=== PATIENT | female | born 1995 | race Caucasian/White ===

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

== ENCOUNTER 2017-06-09 23:31 | Observation (INO) | payer SELFPAY ==
[~2017-06-09] VITALS: Ht 167.6 cm; Wt 62.5 kg
[~2017-06-09 23:31] MED LIST changes: +MACR100C2 PO; -OSEL75 PO
[2017-06-09 23:53] VITALS: BP 134/80; PULSE 74; RESP 18; TEMP 98.1; O2SAT 99
[2017-06-10] VITALS (12 sets, daily range): BP systolic 113–134; BP diastolic 54–80; PULSE 62–80; RESP 16–18; TEMP 98–98.8; O2SAT 99–100
--- NOTE | 2017-06-10 01:53 | RADRPT ---
EXAM DATE/TIME: 06/10/2017 01:29 [facility] COMPARISON: No previous studies available for comparison. INDICATIONS : Short of breath. Patient states feels like something is lodged in throat. MEDICAL HISTORY : None. SURGICAL HISTORY : ENCOUNTER: Initial ACUITY: 1 day PAIN SCORE: 0/10 LOCATION: Bilateral chest FINDINGS: The lungs are clear without infiltrate, nodule, or mass. There is no appreciable pleural effusion fo r technique. Heart and mediastinum are unremarkable. CONCLUSION: No acute cardiopulmonary disease. Daisy Santacruz MD on June 10, 2017 at 1:51 Board Certified Radiologist. This report was verified electronically.
--- NOTE | 2017-06-10 01:56 | RADRPT ---
EXAM DATE/TIME: 06/10/2017 01:29 [facility] COMPARISON: No previous studies available for comparison. INDICATIONS : Patient states feels like something is lodged in throat. MEDICAL HISTORY : None. SURGICAL HISTORY : None. ENCOUNTER: Initial ACUITY: 1 day PAIN SCORE: 0/10 LOCATION: Bilateral neck. FINDINGS: There is air in the prevertebral space dissecting down from the level of oropharynx following down in to the superior mediastinum. The airway appears maintained. There is no evidence for a radiopaque for eign body for technique. CONCLUSION: Dissecting gas in the prevertebral space from oropharynx all the way down to the superior mediastinum without evidence for foreign body. Daisy Santacruz MD on June 10, 2017 at 1:54 Board Certified Radiologist. This report was verified electronically.
[2017-06-10] MEDS ORDERED: PIPERACIL-TAZO 3.375 GM PREMIX 50 ML IV ONE (02:30)
--- NOTE | 2017-06-10 02:39 | PD ---
HPI Chief Complaint: Foreign Body Time Seen by Provider: 01:16 Travel History International Travel<30 days: No Contact w/Intl Traveler<30days: No Traveled to known affect area: No History of Present Illness HPI This is a 21-year-old female who was eating a piece of cheese at around 3 PM when she felt a pain in her throat and upper chest, constant, moderate severity , persistent since then. She feels like something is stuck in her throat. She' s eaten and drank since then and she vomited one but she doesn't feel any better. She's never had symptoms like this before. She denies any fevers or chills. PFSH Past Medical History Autoimmune Disease: No Anxiety: No Depression: No Cardiovascular Problems: No Developmental Delay: No Diminished Hearing: No Genitourinary: No Musculoskeletal: No Neurologic: No Psychiatric: No Respiratory: No Integumentary: Yes (MRSA) Immunizations Current: Yes (UTD, PER PT) Tetanus Vaccination: < 5 Years Influenza Vaccination: No ?: Not LMP: 1 WEEK AGO Past Surgical History Surgical History: No Previous Surgery Other Surgery: No Social History Alcohol Use: No Tobacco Use: No Substance Use: No Allergies-Medications (Allergen,Severity, Reaction): Coded Allergies: *MDRO Multi-Drug Resistant Organism (Verified Allergy, Unknown, 06/10/17) MRSA Reported Meds & Prescriptions Reported Meds & Active Scripts Active Review of Systems Except as stated in HPI: all other systems reviewed are Neg Physical Exam Narrative GENERAL:Well appearing, no acute distress SKIN: Focused skin assessment warm and dry. HEAD: Atraumatic. Normocephalic. EYES: Pupils equal and round. No injection or drainage. ENT: Moist mucous membranes NECK: Trachea midline. CARDIOVASCULAR: Regular rate and rhythm. No murmur appreciated. RESPIRATORY: Clear to auscultation. Breath sounds equal bilaterally. GASTROINTESTINAL: Abdomen soft, non-tender, nondistended. MUSCULOSKELETAL: No obvious deformities. NEUROLOGICAL: Awake and alert. No obvious cranial nerve deficits. Moving all extremities. PSYCHIATRIC: Appropriate mood and affect; insight and judgment normal. Data Data Last Documented VS Vital Signs Date Time Temp Pulse Resp B/P (MAP) Pulse Ox O2 Delivery O2 Flow Rate FiO2 06/10/17 01:45 68 16 116/60 (78) 99 Room Air 06/10/17 00:20 98.1 Orders Orders Soft Tissue Neck (06/10/17 ) Chest, Single Ap (06/10/17 ) Complete Blood Count With Diff (06/10/17 02:23) Comprehensive Metabolic Panel (06/10/17 02:23) Prothrombin Time / Inr (Pt) (06/10/17 02:23) Act Partial Throm Time (Ptt) (06/10/17 02:23) Piperacil-Tazo 3.375 Gm Premix (Zosyn 3. (06/10/17 02:30) Admit Order (Ed Use Only) (06/10/17 03:29) Place In Observation (06/10/17 ) Vital Signs (Adult) Q4H (06/10/17 03:28) Activity Oob With Assistance (06/10/17 03:28) Diet Npo (06/10/17 Breakfast) Sodium Chlor 0.9% 1000 Ml Inj (Ns 1000 M (06/10/17 03:28) Sodium Chloride 0.9% Flush (Ns Flush) (06/10/17 03:30) Sodium Chloride 0.9% Flush (Ns Flush) (06/10/17 09:00) Acetaminophen (Tylenol) (06/10/17 03:30) Ondansetron Inj (Zofran Inj) (06/10/17 03:30) Basic Metabolic Panel (Bmp) (06/11/17 06:00) Complete Blood Count With Diff (06/11/17 06:00) Naloxone Inj (Narcan Inj) (06/10/17 03:30) Docusate Sodium-Senna (Sharmin-Colace) (06/10/17 09:00) Magnesium Hydroxide Liq (Milk Of Magnesi (06/10/17 03:30) Sennosides (Senokot) (06/10/17 03:30) Bisacodyl Supp (Dulcolax Supp) (06/10/17 03:30) Lactulose Liq (Lactulose Liq) (06/10/17 03:30) Consult Gastroenterology (06/10/17 ) Labs Laboratory Tests Test 06/10/17 02:42 White Blood Count 9.9 TH/MM3 Red Blood Count 4.91 MIL/MM3 Hemoglobin 14.0 GM/DL Hematocrit 42.2 % Mean Corpuscular Volume 85.9 FL Mean Corpuscular Hemoglobin 28.6 PG Mean Corpuscular Hemoglobin Concent 33.3 % Red Cell Distribution Width 13.2 % Platelet Count 189 TH/MM3 Mean Platelet Volume 8.4 FL Neutrophils (%) (Auto) 68.1 % Lymphocytes (%) (Auto) 22.4 % Monocytes (%) (Auto) 8.1 % Eosinophils (%) (Auto) 0.7 % Basophils (%) (Auto) 0.7 % Neutrophils # (Auto) 6.7 TH/MM3 Lymphocytes # (Auto) 2.2 TH/MM3 Monocytes # (Auto) 0.8 TH/MM3 Eosinophils # (Auto) 0.1 TH/MM3 Basophils # (Auto) 0.1 TH/MM3 CBC Comment DIFF FINAL Differential Comment Prothrombin Time 11.3 SEC Prothromb Time International Ratio 1.1 RATIO Activated Partial Thromboplast Time 29.0 SEC Blood Urea Nitrogen 7 MG/DL Creatinine 0.61 MG/DL Random Glucose 87 MG/DL Total Protein 7.4 GM/DL Albumin 4.4 GM/DL Calcium Level 9.2 MG/DL Alkaline Phosphatase 72 U/L Aspartate Amino Transf (AST/SGOT) 15 U/L Alanine Aminotransferase (ALT/SGPT) 14 U/L Total Bilirubin 1.6 MG/DL Sodium Level 136 MEQ/L Potassium Level 3.4 MEQ/L Chloride Level 103 MEQ/L Carbon Dioxide Level 24.9 MEQ/L Anion Gap 8 MEQ/L Estimat Glomerular Filtration Rate 126 ML/MIN MDM Medical Decision Making Medical Screen Exam Complete: Yes Emergency Medical Condition: Yes Interpretation(s) Afebrile, mild hypertension Last 24 hours Impressions xray soft tissue neck: air dissecting into the mediastinum Differential Diagnosis Esophageal food bolus, foreign body, esophageal perforation Narrative Course Is a 21-year-old female who presents to the emergency department with a foreign body sensation in the back of her throat following eating and then vomiting. Soft tissue x-ray of the neck was obtained demonstrating air dissecting in the prevertebral space down to the superior mediastinum. She is nontoxic appearing and labs are reassuring. She was given a dose of IV Zosyn. She'll be admitted for GI evaluation for potential esophageal perforation. Diagnosis Primary Impression: Pneumomediastinum Admitting Information Admitting Physician Requests: Admit Scripts Hydrocodone/Acetaminophen (Hydrocodone-Acetamin 5-325 mg) 5 Mg-325 Mg Tablet 1 TAB PO Q6H Y for pain , #12 TAB Prov: Davis Dumont MD 06/11/17 Randee Sherman MD Jun 10, 2017 02:39
[2017-06-10 02:51] LABS: AUTOMATED NEUTROPHIL # 6.7 TH/MM3 (1.8-7.7); BASOPHIL # 0.1 TH/MM3 (0-0.2); BASOPHIL % 0.7 % (0.0-2.0); EOSINOPHIL # 0.1 TH/MM3 (0-0.4); EOSINOPHIL % 0.7 % (0.0-4.0); HEMATOCRIT 42.2 % (35.0-46.0); LYMPH % 22.4 % (9.0-44.0); LYMPHOCYTE # 2.2 TH/MM3 (1.0-4.8); MEAN CELL VOLUME 85.9 FL (80.0-100.0); MEAN CORPUSCULAR HEMOGLOBIN 28.6 PG (27.0-34.0); MEAN CORPUSCULAR HGB CONC 33.3 % (32.0-36.0); MEAN PLATELET VOLUME 8.4 FL (7.0-11.0); MONO % 8.1 % (0.0-8.0); MONOCYTE # 0.8 TH/MM3 (0-0.9); NEUT % 68.1 % (16.0-70.0); PLATELET COUNT 189 TH/MM3 (150-450); RED BLOOD COUNT 4.91 MIL/MM3 (4.00-5.30); RED CELL DISTRIBUTION WIDTH 13.2 % (11.6-17.2); WHITE BLOOD COUNT 9.9 TH/MM3 (4.0-11.0)
[2017-06-10 02:58] LABS: CHLORIDE 103 MEQ/L (98-107); SODIUM (NA) 136 MEQ/L (136-145)
[2017-06-10 03:02] LABS: ALBUMIN 4.4 GM/DL (3.4-5.0); BICARBONATE 24.9 MEQ/L (21.0-32.0); BLOOD UREA NITROGEN 7 MG/DL (7-18); CALCIUM 9.2 MG/DL (8.5-10.1); GLUCOSE,RANDOM 87 MG/DL (74-106)
[2017-06-10 03:03] LABS: INTERNATIONAL NORMALIZED RATIO 1.1 RATIO; PROTHROMBIN TIME - PATIENT 11.3 SEC (9.8-11.6)
[2017-06-10 03:05] LABS: ALT (GPT) 14 U/L (9-42); AST (GOT) 15 U/L (16-38)
[2017-06-10 03:06] LABS: CREATININE 0.61 MG/DL (0.50-1.00); GLOMERULAR FILTRATION RATE 126 ML/MIN (>89)
[2017-06-10 03:07] LABS: TOTAL BILIRUBIN ADULT 1.6 MG/DL (0.2-1.0); TOTAL PROTEIN 7.4 GM/DL (6.4-8.2)
[2017-06-10 03:08] LABS: ALKALINE PHOSPHATASE 72 U/L (45-117)
[2017-06-10] MEDS ORDERED: MAGNESIUM HYDROXIDE SUSP 30 ML CUP PO PRN (03:30)
[2017-06-10] MEDS ORDERED: NALOXONE HCL 0.4 MG/ML AMP IV PUSH PRN (03:30)
[2017-06-10] MEDS ORDERED: SODIUM CHLORIDE 0.9% FLUSH 10 ML FLUSH IV FLUSH PRN (03:30)
[2017-06-10] MEDS ORDERED: LACTULOSE SYRUP 20 GM/30 ML CUP PO PRN (03:30)
[2017-06-10] MEDS ORDERED: BISACODYL 10 MG SUPP RECTAL PRN (03:30)
[2017-06-10] MEDS ORDERED: SENNOSIDES 8.6 MG TAB PO PRN (03:30)
[2017-06-10] MEDS ORDERED: ONDANSETRON HCL 4 MG/2 ML VIAL IVP PRN (03:30)
[2017-06-10] MEDS ORDERED: ACETAMINOPHEN 325 MG TAB PO PRN (03:30)
[2017-06-10] MEDS ORDERED: DIATRIZOATE MEGLUM/DIATRIZOATE SOD 120 ML BTL (for RAD DIAG) PO ONE (03:32)
[2017-06-10] MEDS: SODIUM CHLOR 0.9% 1000 ML INJ 1,000 ML IV SCH ×2 (03:53→16:48)
[2017-06-10] MEDS: SODIUM CHLORIDE 0.9% FLUSH 10 ML FLUSH IV FLUSH SCH ×2 (09:00→21:03)
[2017-06-10] MEDS: DOCUSATE SODIUM 50 MG/SENNA 8.6 MG TAB PO SCH ×2 (09:09→21:00)
--- NOTE | 2017-06-10 09:38 | PD.CONS ---
HPI History of Present Illness This is a 21 year old F who presented to the emergency department at 11 last night for globus sensation in her esophagus. She reports eating cheese at approx 3:15 in the afternoon yesterday and she felt like it never completely went down. She tried drinking water and eating hoping that it would pass, she reports everything went down ok, however the globus sensation remained. She also tried making herself vomit hoping it would relieve the sensation but it did not. Pt denies any episodes of dysphagia in the past. Currently reports odynophagia and pain in her esophagus worse with coughing. Denies SOB or chest pain. She is currently resting in bed, grandmother at bedside. Denies any past medical history. Denies current medication. Denies past surgeries. CT soft tissue neck (06/10) --> Dissecting gas in the prevertebral space from oropharynx all the way down to the superior mediastinum without evidence for foreign body. Chest X-ray (06/10) --> No acute cardiopulmonary disease. Heart and mediastinum are unremarkable. (Cherelle Carbone) PFSH Past Medical History Denies Past Surgical History Denies (Cherelle Carbone) Coded Allergies: *MDRO Multi-Drug Resistant Organism (Verified Allergy, Unknown, 06/10/17) MRSA Family History Maternal great grandmother- breast cancer (Cherelle Carbone) Review of Systems Gastrointestinal: COMPLAINS OF: Vomiting, Difficulty Swallowing, Odynophagia, DENIES: Abdominal pain, Black stools, Bloody stools, Constipation, Diarrhea, Nausea, Anorexia, Heartburn, Hematemesis (Cherelle Carbone) GI Exam Vitals I&O Vital Signs Date Time Temp Pulse Resp B/P (MAP) Pulse Ox O2 Delivery O2 Flow Rate FiO2 06/10/17 08:00 98.0 74 18 118/72 (87) 100 06/10/17 04:00 98.7 69 16 113/54 (73) 99 06/10/17 01:45 68 16 116/60 (78) 99 Room Air 06/10/17 00:20 98.1 74 18 134/80 (98) 99 06/09/17 23:53 98.1 74 18 134/80 (98) 99 I/O 12/27/17 1206/09/17 06/10/17 06/10/17 06/10/17 07:00 15:00 23:00 07:00 15:00 23:00 Intake Total 193 ml Balance 193 ml Intake Oral 0 ml IV Total 193 ml # Voids 0 Imaging Last Impressions Soft Tissue Neck X-Ray 06/10/17 0000 Signed Impressions: Service Date/Time: May 01:29 - CONCLUSION: Dissecting gas in the prevertebral space from oropharynx all the way down to the superior mediastinum without evidence for foreign body. Daisy Santacruz MD Chest X-Ray 06/10/17 0000 Signed Impressions: Service Date/Time: May 01:29 - CONCLUSION: No acute cardiopulmonary disease. Daisy Santacruz MD Laboratory Test 06/10/17 02:42 White Blood Count 9.9 TH/MM3 Red Blood Count 4.91 MIL/MM3 Hemoglobin 14.0 GM/DL Hematocrit 42.2 % Mean Corpuscular Volume 85.9 FL Mean Corpuscular Hemoglobin 28.6 PG Mean Corpuscular Hemoglobin Concent 33.3 % Red Cell Distribution Width 13.2 % Platelet Count 189 TH/MM3 Mean Platelet Volume 8.4 FL Neutrophils (%) (Auto) 68.1 % Lymphocytes (%) (Auto) 22.4 % Monocytes (%) (Auto) 8.1 % Eosinophils (%) (Auto) 0.7 % Basophils (%) (Auto) 0.7 % Neutrophils # (Auto) 6.7 TH/MM3 Lymphocytes # (Auto) 2.2 TH/MM3 Monocytes # (Auto) 0.8 TH/MM3 Eosinophils # (Auto) 0.1 TH/MM3 Basophils # (Auto) 0.1 TH/MM3 CBC Comment DIFF FINAL Differential Comment Prothrombin Time 11.3 SEC Prothromb Time International Ratio 1.1 RATIO Activated Partial Thromboplast Time 29.0 SEC Blood Urea Nitrogen 7 MG/DL Creatinine 0.61 MG/DL Random Glucose 87 MG/DL Total Protein 7.4 GM/DL Albumin 4.4 GM/DL Calcium Level 9.2 MG/DL Alkaline Phosphatase 72 U/L Aspartate Amino Transf (AST/SGOT) 15 U/L Alanine Aminotransferase (ALT/SGPT) 14 U/L Total Bilirubin 1.6 MG/DL Sodium Level 136 MEQ/L Potassium Level 3.4 MEQ/L Chloride Level 103 MEQ/L Carbon Dioxide Level 24.9 MEQ/L Anion Gap 8 MEQ/L Estimat Glomerular Filtration Rate 126 ML/MIN Physical Examination HEENT: Normocephalic; atraumatic CHEST: CTA CARDIAC: RRR ABDOMEN: Soft, nondistended, nontender; no hepatosplenomegaly; bowel sounds active x 4. EXTREMITIES: No clubbing, cyanosis, or edema. SKIN: Normal; no rash; no jaundice. DIFFUSION FURNACE OPERATOR: No focal deficits; alert and oriented times three. (Cherelle Carbone) Assessment and Plan Plan Assessment - [place] tear- CT soft tissue neck (06/10) --> Dissecting gas in the prevertebral space from oropharynx all the way down to the superior mediastinum without evidence of foreign body. Pt reports globus sensation since 3 in the afternoon yesterday after eating cheese. She reports being able to eat and drink after and was able to swallow without bringing it back up. She does report forcing herself to vomit to try and get rid of the globus sensation with no relief. She denies history of intentionally making herself vomit. Denies SOB or chest pain. Plan - Strict NPO - Zosyn q 8hrs - Cardiothoracic surgery consult - Transfer to [facility] - Barium swallow with Gastrografin - Monitor labs - Further recommendations to follow based on results of above Pt has been seen and examined by myself and Dr. Gongora and this note is written on his behalf (Cherelle Carbone) Physician Comments Seen and examined by DRISS, ct reviewed. Pt. transferred to [facility] for stat surgical consultation. Not seen by me here at [facility]. Dr. Barajas will follow at the [facility]. (Nuria Gongora MD) Cherelle Carbone Jun 10, 2017 09:38 Nuria Gongora MD Jun 10, 2017 12:12
--- NOTE | 2017-06-10 09:48 | HHI.HP ---
[facility] No Primary Care Physician Admission Diagnosis Pneumomediastinum Diagnoses: (1) Boerhaave syndrome Diagnosis: Principal Chief Complaint: Foreign body sensation in throat Travel History International Travel<30 Days: No Contact w/Intl Traveler <30 Da: No Traveled to Known Affected Are: No History of Present Illness Written by Jacqueline López, acting as scribe for [] on 06/10/17 at 09:43. Ms. Echeverria is a 21-year-old female patient with no known medical history who presented to the ED with a foreign body sensation in her throat. She states while at work she ate a piece of mozzarella cheese that seemed to keep getting stuck in her throat. She kept drinking and eating, kept progressively getting more irritated. Around 2029 she tried to eat, was somewhat painful also with her voice feeling muffled. Patient attempted to throw up x 2 but still had a foreign body sensation which led to her presentation to the ED. Denies any history of bulimia or frequent vomiting. Denies any history of any dysphagia. Denies any recent illness including fever, chills, headache, shortness of breath , abdominal pain, nausea, diarrhea or dysuria. Denies any chest pain. No medical history. 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 Ordered Medications Current Medications Medications (Trade) Dose Ordered Sig/Anne Route Start Time Stop Time Status Last Admin Sodium Chloride 1,000 ml @ 75 mls/hr [id number] IV 06/10/17 03:28 06/10/17 03:53 (NS Flush) 2 ml UNSCH PRN IV FLUSH 06/10/17 03:30 (NS Flush) 2 ml BID IV FLUSH 06/10/17 09:00 (Tylenol) 650 mg Q4H PRN PO 06/10/17 03:30 (Zofran Inj) 4 mg Q6H PRN IVP 06/10/17 03:30 (Narcan Inj) 0.4 mg UNSCH PRN IV PUSH 06/10/17 03:30 (Sharmin-Colace) 1 tab BID PO 06/10/17 09:00 06/10/17 09:09 (Milk Of Magnesia Liq) 30 ml Q12H PRN PO 06/10/17 03:30 (Senokot) 17.2 mg Q12H PRN PO 06/10/17 03:30 (Dulcolax Supp) 10 mg DAILY PRN RECTAL 06/10/17 03:30 (Lactulose Liq) 30 ml DAILY PRN PO 06/10/17 03:30 Piperacillin Sod/ Tazobactam Sod 50 ml @ 100 mls/hr Q8H IV 06/10/17 09:45 UNV Family History Maternal great grandmother- breast cancer Social History Cancer on maternal side. Physical Exam Vital Signs Vital Signs Date Time Temp Pulse Resp B/P (MAP) Pulse Ox O2 Delivery O2 Flow Rate FiO2 06/10/17 08:00 98.0 74 18 118/72 (87) 100 06/10/17 04:00 98.7 69 16 113/54 (73) 99 06/10/17 01:45 68 16 116/60 (78) 99 Room Air 06/10/17 00:20 98.1 74 18 134/80 (98) 99 06/09/17 23:53 98.1 74 18 134/80 (98) 99 Physical Exam GENERAL: This is a well-nourished, well-developed patient, in no apparent distress. SKIN: No rashes, ecchymoses or lesions. Warm and dry. HEAD: Atraumatic. Normocephalic. EYES: Pupils equal round and reactive. Extraocular motions intact. No scleral icterus. No injection or drainage. ENT: Nose without bleeding, purulent drainage or septal hematoma. Throat without erythema, tonsillar hypertrophy or exudate. Uvula midline. Airway patent. NECK: Trachea midline. No JVD. Supple. CARDIOVASCULAR: Regular rate and rhythm without murmurs, gallops, or rubs. RESPIRATORY: Clear to auscultation. Breath sounds equal bilaterally. No wheezes , rales, or rhonchi. GASTROINTESTINAL: Abdomen soft, non-tender, nondistended. No guarding. MUSCULOSKELETAL: Extremities without clubbing, cyanosis, or edema. No joint tenderness, effusion, or edema noted. NEUROLOGICAL: Awake and alert. Cranial nerves II through XII intact. Motor and sensory grossly within normal limits. Five out of 5 muscle strength in all muscle groups. Normal speech. Laboratory Laboratory Tests Test 06/10/17 02:42 White Blood Count 9.9 Red Blood Count 4.91 Hemoglobin 14.0 Hematocrit 42.2 Mean Corpuscular Volume 85.9 Mean Corpuscular Hemoglobin 28.6 Mean Corpuscular Hemoglobin Concent 33.3 Red Cell Distribution Width 13.2 Platelet Count 189 Mean Platelet Volume 8.4 Neutrophils (%) (Auto) 68.1 Lymphocytes (%) (Auto) 22.4 Monocytes (%) (Auto) 8.1 Eosinophils (%) (Auto) 0.7 Basophils (%) (Auto) 0.7 Neutrophils # (Auto) 6.7 Lymphocytes # (Auto) 2.2 Monocytes # (Auto) 0.8 Eosinophils # (Auto) 0.1 Basophils # (Auto) 0.1 CBC Comment DIFF FINAL Differential Comment Prothrombin Time 11.3 Prothromb Time International Ratio 1.1 Activated Partial Thromboplast Time 29.0 Blood Urea Nitrogen 7 Creatinine 0.61 Random Glucose 87 Total Protein 7.4 Albumin 4.4 Calcium Level 9.2 Alkaline Phosphatase 72 Aspartate Amino Transf (AST/SGOT) 15 Alanine Aminotransferase (ALT/SGPT) 14 Total Bilirubin 1.6 Sodium Level 136 Potassium Level 3.4 Chloride Level 103 Carbon Dioxide Level 24.9 Anion Gap 8 Estimat Glomerular Filtration Rate 126 Result Diagram: 06/10/17 0242 06/10/17 0242 Imaging Last Impressions Soft Tissue Neck X-Ray 06/10/17 0000 Signed Impressions: Service Date/Time: May 01:29 - CONCLUSION: Dissecting gas in the prevertebral space from oropharynx all the way down to the superior mediastinum without evidence for foreign body. Daisy Santacruz MD Chest X-Ray 06/10/17 0000 Signed Impressions: Service Date/Time: May 01:29 - CONCLUSION: No acute cardiopulmonary disease. Daisy Santacruz MD Septic Shock Reassessment Septic shock perfusion: reassessment completed Caprini VTE Risk Assessment Caprini VTE Risk Assessment: No/Low Risk (score <= 1) Caprini Risk Assessment Model Point Value = 1 Point Value = 2 Point Value = 3 Point Value = 5 Age 41-60 Minor surgery BMI > 25 kg/m2 Swollen legs Varicose veins or History of unexplained or recurrent spontaneous Oral contraceptives or hormone replacement Sepsis (< 1 month) Serious lung disease, including pneumonia (< 1 month) Abnormal pulmonary function Acute myocardial infarction Congestive heart failure (< 1 month) History of inflammatory bowel disease Medical patient at bed rest Age 61-74 Arthroscopic surgery Major open surgery (> 45 min) Laparoscopic surgery (> 45 min) Malignancy Confined to bed (> 72 hours) Immobilizing plaster cast Central venous access Age >= 75 History of VTE Family history of VTE Factor V Leiden Prothrombin [id number] Lupus anticoagulant Anticardiolipin antibodies Elevated serum homocysteine Heparin-induced thrombocytopenia Other congenital or acquired thrombophilia Stroke (< 1 month) Elective arthroplasty Hip, pelvis, or leg fracture Acute spinal cord injury (< 1 month) Prophylaxis Regimen Total Risk Factor Score Risk Level Prophylaxis Regimen 0-1 Low Early ambulation 2 Moderate Order ONE of the following: *Sequential Compression Device (SCD) *Heparin 5000 units SQ BID 3-4 Higher Order ONE of the following medications: *Heparin 5000 units SQ TID *Enoxaparin/Lovenox 40 mg SQ daily (WT < 150 kg, CrCl > 30 mL/min) *Enoxaparin/Lovenox 30 mg SQ daily (WT < 150 kg, CrCl > 10-29 mL/min) *Enoxaparin/Lovenox 30 mg SQ BID (WT < 150 kg, CrCl > 30 mL/min) AND/OR *Sequential Compression Device (SCD) 5 or more Highest Order ONE of the following medications: *Heparin 5000 units SQ TID (Preferred with Epidurals) *Enoxaparin/Lovenox 40 mg SQ daily (WT < 150 kg, CrCl > 30 mL/min) *Enoxaparin/Lovenox 30 mg SQ daily (WT < 150 kg, CrCl > 10-29 mL/min) *Enoxaparin/Lovenox 30 mg SQ BID (WT < 150 kg, CrCl > 30 mL/min) AND *Sequential Compression Device (SCD) Assessment and Plan Problem List: (1) Dianeaave syndrome ICD Code: 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 CXR reviewed showing no acute cardiopulmonary disease. GI has been consulted and has seen patient, appreciate input and further recommendations. Recommendations to keep NPO. Started on Zosyn IV. Patient will be transferred to [facility] for cardiothoracic surgery consult and possible need for intervention, appreciate input and further recommendations. Spoke to Dr. Weinstein who has been updated on patient status and agreeable to consultation. A barium swallow will also be performed. Follow results. Patient is stable at this time and agreeable to the plan. Further hospitalization and treatment course will depend on results and consultation. Continue to follow. Assessment and Plan This note was transcribed by DRISS Burleson . I, Dr. Lori Mcmullen personally performed the history, physical exam, and medical decision making; and confirmed the accuracy of the information in the transcribed note. Authenticated by Dr. Lori Mcmullen on 06/10/17 at 09:43. Discussed Condition With Patient Jacqueline López Jun 10, 2017 09:48 Lori Mcmullen MD Jun 10, 2017 14:27
[2017-06-10] MEDS: PIPERACIL-TAZO 3.375 GM PREMIX 50 ML IV SCH ×2 (11:40→21:26)
--- NOTE | 2017-06-10 15:22 | RADRPT ---
EXAM DATE/TIME: 06/10/2017 13:40 [place] COMPARISON: No previous studies available for comparison. INDICATIONS : Evaluate for perforation. FLUORO TIME: 0.6 minutes IMAGE COUNT: 3 CONTRAST: 1. Gastrografin (Diatrizoate Meglumine and Diatrizoate Sodium) MEDICAL HISTORY : None. SURGICAL HISTORY : None. ENCOUNTER: Initial ACUITY: 1 day PAIN SCORE: 4/10 LOCATION: Neck FINDINGS: Examination of the esophagus demonstrates the swallowing function to be normal. There is no evidence of aspiration or penetration. Focal mucosal thickening and irregularity is identified along the ante rior surface of the upper cervical esophagus just below the esophageal sphincter. There is no evidenc e of extra soft tissue leakage. The cervical esophagus is unremarkable. CONCLUSION: Focal mucosal irregularity along the anterior surface of the upper cervical esophagus without evidence of extra esophageal leakage. This may represent the site of the patient's subcutane ous emphysema however no leakage of contrast is demonstrated. Otherwise normal esophagram. Hector Dunn MD on June 10, 2017 at 15:17 Board Certified Radiologist. This report was verified electronically.
--- NOTE | 2017-06-10 16:05 | MB ---
cc: TIFFANIE MANCIA DATE OF CONSULTATION: 06/10/2017 1997 HISTORY OF PRESENT ILLNESS A 21-year-old female who was at work yesterday about 3 o'clock, when she ate a piece of cheese and felt like it got stuck in her throat, did not completely go down. She apparently tried drinking some water hoping that it would pass but she still had this fullness in the back of her throat. She said she tried to make herself vomit by sticking her finger down her throat to relieve the sensation which it did not help and she then noticed some difficulty with swallowing. She also had some pain in her esophagus when she coughs. She denied having any shortness of breath. She presented to the emergency room on 06/09 0100. She underwent soft tissue neck which showed some dissecting gas in the paravertebral space from the oropharynx all the way down to the superior mediastinum without evidence of foreign body. Chest x-ray was unremarkable. The patient is to undergo Gastrografin swallow with barium swallow today. She was transferred from the [facility] to the main facility to be evaluated further. The patient has been also followed by Dr. Gongora. The patient was diagnosed having a Boerhaave tear. PAST MEDICAL HISTORY She has no past medical history. PAST SURGICAL HISTORY She has no past surgical history. Her last menstrual period was 06/02/2017. MEDICATION She is on no medications. ALLERGIES No known allergies. SOCIAL HISTORY She lives with her grandmother. No tobacco. No alcohol. REVIEW OF SYSTEMS Unremarkable other than 12 systems as above. PHYSICAL EXAMINATION VITAL SIGNS: Blood pressure 120/70, heart rate 73, temperature max 98.6. GENERAL: Patient is awake, alert, in no acute distress. She does however still complain of some trouble swallowing her spit. HEENT: Head is normocephalic, atraumatic. Oral mucosa pink, moist, noninjected. NECK: Supple. There is no subcutaneous air noted around the anterior portion of her neck around the trachea, upper chest. HEART: Heart sounds S1-S2, regular rate and rhythm. No rubs, murmurs, gallops. LUNGS: Clear to auscultation. No wheezes, rales or rhonchi. ABDOMEN: Soft, nontender. No masses or organomegaly. EXTREMITIES: No cyanosis, clubbing or edema. RADIOLOGIC EXAMS As above. LABORATORY DATA Hemoglobin 14, hematocrit of 42, white cell count 9.9, platelet count 189. Sodium 136, potassium 3.4, BUN of 7 with a creatinine of 0.61. IMPRESSION A 21-year-old female status post complaint of a globulus sensation since eating a piece of cheese yesterday where she forced herself to try to vomit by sticking her finger down her throat with no relief. The patient's soft-tissue neck showing some dissecting gas in the paravertebral space from the oropharynx all the way down. She is pending a barium swallow. Will continue to keep her n.p.o. at this time. No immediate surgical intervention at this time and the pending films will be evaluated by Dr. Tiffanie Mancia and further addendum. Dictated by: DRISS Whitman MD MORAIMA Snyder/ANASTASIYA /2:50 PM /3:17 PM
--- NOTE | 2017-06-10 16:29 | PD.CAR.PN ---
CVT Progress Note Subjective/Hospital Course: c/o neck pain, something caught in throat Objective: Vital Signs Date Time Temp Pulse Resp B/P (MAP) Pulse Ox O2 Delivery O2 Flow Rate FiO2 06/10/17 15:01 98.8 80 18 127/69 (88) 99 06/10/17 12:00 80 06/10/17 11:48 98.6 73 18 120/76 (91) 100 06/10/17 08:00 98.0 74 18 118/72 (87) 100 06/10/17 04:00 98.7 69 16 113/54 (73) 99 06/10/17 01:45 68 16 116/60 (78) 99 Room Air 06/10/17 00:20 98.1 74 18 134/80 (98) 99 06/09/17 23:53 98.1 74 18 134/80 (98) 99 Result Diagram: 06/10/17 0242 06/10/17 0242 Imaging: Last Impressions Upper GI/Barium Swallow X-Ray 06/10/17 0000 Signed Impressions: Service Date/Time: May 13:40 - CONCLUSION: Focal mucosal irregularity along the anterior surface of the upper cervical esophagus without evidence of extra esophageal leakage. This may represent the site of the patient's subcutaneous emphysema however no leakage of contrast is demonstrated. Otherwise normal esophagram. Hector Dunn MD Soft Tissue Neck X-Ray 06/10/17 0000 Signed Impressions: Service Date/Time: May 01:29 - CONCLUSION: Dissecting gas in the prevertebral space from oropharynx all the way down to the superior mediastinum without evidence for foreign body. aDisy Santacruz MD Chest X-Ray 06/10/17 0000 Signed Impressions: Service Date/Time: May 01:29 - CONCLUSION: No acute cardiopulmonary disease. Daisy Santacruz MD Cardiovascular: RRR Telemetry: NSR Pulmonary: CTA GI/: NABS, NT Crepitus appreciated in neck Plan: Imaging shows no perforation, but there is likely a mucosal injury. This should heal on its own. She may have a diverticulum, but this was not appreciated on barium swallow. There may be a role for EGD as an outpatient. Tiffanie Mancia MD Jun 10, 2017 16:28
[2017-06-10] MEDS ORDERED: MORPHINE SULFATE 2 MG/ML INJ IV PRN (16:30)
[2017-06-11] VITALS (15 sets, daily range): BP systolic 108–143; BP diastolic 64–74; PULSE 56–86; RESP 18; TEMP 97.7–98.5; O2SAT 98–100
[2017-06-11] MEDS: PIPERACIL-TAZO 3.375 GM PREMIX 50 ML IV SCH (04:33)
[2017-06-11] MEDS: SODIUM CHLOR 0.9% 1000 ML INJ 1,000 ML IV SCH (05:22)
[2017-06-11 06:36] LABS: AUTOMATED NEUTROPHIL # 2.4 TH/MM3 (1.8-7.7); BASOPHIL % 0.7 % (0.0-2.0); EOSINOPHIL # 0.1 TH/MM3 (0-0.4); EOSINOPHIL % 2.7 % (0.0-4.0); HEMATOCRIT 39.6 % (35.0-46.0); HEMOGLOBIN 13.1 GM/DL (11.6-15.3); LYMPH % 36.6 % (9.0-44.0); LYMPHOCYTE # 1.8 TH/MM3 (1.0-4.8); MEAN CELL VOLUME 87.2 FL (80.0-100.0); MEAN CORPUSCULAR HEMOGLOBIN 28.9 PG (27.0-34.0); MEAN CORPUSCULAR HGB CONC 33.1 % (32.0-36.0); MEAN PLATELET VOLUME 8.6 FL (7.0-11.0); MONO % 11.9 % (0.0-8.0); MONOCYTE # 0.6 TH/MM3 (0-0.9); NEUT % 48.1 % (16.0-70.0); PLATELET COUNT 167 TH/MM3 (150-450); RED BLOOD COUNT 4.54 MIL/MM3 (4.00-5.30); RED CELL DISTRIBUTION WIDTH 14.1 % (11.6-17.2)
[2017-06-11 07:04] LABS: BICARBONATE 23.4 MEQ/L (21.0-32.0); CALCIUM 8.6 MG/DL (8.5-10.1); CREATININE 0.57 MG/DL (0.50-1.00)
[2017-06-11] MEDS ORDERED: ACETAMINOPHEN/HYDROcodone 325 MG/5 MG TAB PO PRN (08:15)
[2017-06-11] MEDS ORDERED: POTASSIUM CHLORIDE 10 MEQ CONTROLLED RELEASE TAB PO ONE (08:15)
[2017-06-11 08:34] LABS: ALBUMIN 3.7 GM/DL (3.4-5.0); DIRECT BILIRUBIN ADULT 0.3 MG/DL (0.0-0.2)
[2017-06-11 08:36] LABS: INDIRECT BILIRUBIN 1.8 MG/DL (0.0-0.8); TOTAL BILIRUBIN ADULT 2.1 MG/DL (0.2-1.0); TOTAL PROTEIN 6.5 GM/DL (6.4-8.2)
[2017-06-11] MEDS: DOCUSATE SODIUM 50 MG/SENNA 8.6 MG TAB PO SCH (09:00)
[2017-06-11] MEDS: SODIUM CHLORIDE 0.9% FLUSH 10 ML FLUSH IV FLUSH SCH (09:00)
--- NOTE | 2017-06-11 10:05 | PD.CAR.PN ---
CVT Progress Note Subjective/Hospital Course: sore throat improving, tolerating clear liquids would advance diet as tolerated soft foods, etc no surgical intervention ok to dc home from CV surgery standpoint / when cleared by GI Objective: GENERAL: SKIN: Warm and dry. HEAD: Normocephalic. EYES: No scleral icterus. No injection or drainage. NECK: Supple, trachea midline. No JVD or lymphadenopathy. CARDIOVASCULAR: Regular rate and rhythm without murmurs, gallops, or rubs. RESPIRATORY: Breath sounds equal bilaterally. No accessory muscle use. GASTROINTESTINAL: Abdomen soft, non-tender, nondistended. MUSCULOSKELETAL: No cyanosis, or edema. BACK: Nontender without obvious deformity. No CVA tenderness. Vital Signs Date Time Temp Pulse Resp B/P (MAP) Pulse Ox O2 Delivery O2 Flow Rate FiO2 06/11/17 08:45 97.7 78 18 143/71 (95) 100 06/11/17 07:01 58 06/11/17 05:44 58 06/11/17 04:32 98.2 59 18 118/64 (82) 99 06/11/17 04:00 58 06/11/17 03:00 56 06/11/17 02:00 62 06/11/17 01:00 56 06/11/17 00:00 98.2 66 18 108/72 (84) 100 06/10/17 23:00 62 06/10/17 20:00 98.6 63 18 117/65 (82) 99 06/10/17 19:00 63 06/10/17 18:00 78 06/10/17 15:01 98.8 80 18 127/69 (88) 99 06/10/17 15:00 74 06/10/17 12:00 80 06/10/17 11:48 98.6 73 18 120/76 (91) 100 Labs: Laboratory Tests Test 06/11/17 05:15 06/11/17 05:18 Blood Urea Nitrogen 4 MG/DL (7-18) Creatinine 0.57 MG/DL (0.50-1.00) Random Glucose 61 MG/DL (74-106) Calcium Level 8.6 MG/DL (8.5-10.1) Sodium Level 140 MEQ/L (136-145) Potassium Level 3.2 MEQ/L (3.5-5.1) Chloride Level 106 MEQ/L (98-107) Carbon Dioxide Level 23.4 MEQ/L (21.0-32.0) Anion Gap 11 MEQ/L (5-15) Estimat Glomerular Filtration Rate 137 ML/MIN (>89) Magnesium Level 2.0 MG/DL (1.5-2.5) Total Bilirubin 2.1 MG/DL (0.2-1.0) Direct Bilirubin 0.3 MG/DL (0.0-0.2) Indirect Bilirubin 1.8 MG/DL (0.0-0.8) Aspartate Amino Transf (AST/SGOT) 10 U/L (16-38) Alanine Aminotransferase (ALT/SGPT) 10 U/L (9-42) Alkaline Phosphatase 63 U/L (45-117) Total Protein 6.5 GM/DL (6.4-8.2) Albumin 3.7 GM/DL (3.4-5.0) White Blood Count 5.0 TH/MM3 (4.0-11.0) Red Blood Count 4.54 MIL/MM3 (4.00-5.30) Hemoglobin 13.1 GM/DL (11.6-15.3) Hematocrit 39.6 % (35.0-46.0) Mean Corpuscular Volume 87.2 FL (80.0-100.0) Mean Corpuscular Hemoglobin 28.9 PG (27.0-34.0) Mean Corpuscular Hemoglobin Concent 33.1 % (32.0-36.0) Red Cell Distribution Width 14.1 % (11.6-17.2) Platelet Count 167 TH/MM3 (150-450) Mean Platelet Volume 8.6 FL (7.0-11.0) Neutrophils (%) (Auto) 48.1 % (16.0-70.0) Lymphocytes (%) (Auto) 36.6 % (9.0-44.0) Monocytes (%) (Auto) 11.9 % (0.0-8.0) Eosinophils (%) (Auto) 2.7 % (0.0-4.0) Basophils (%) (Auto) 0.7 % (0.0-2.0) Neutrophils # (Auto) 2.4 TH/MM3 (1.8-7.7) Lymphocytes # (Auto) 1.8 TH/MM3 (1.0-4.8) Monocytes # (Auto) 0.6 TH/MM3 (0-0.9) Eosinophils # (Auto) 0.1 TH/MM3 (0-0.4) Basophils # (Auto) 0.0 TH/MM3 (0-0.2) CBC Comment DIFF FINAL Differential Comment Result Diagram: 06/11/17 0518 06/11/17 0515 (1) Boerhaave syndrome Plan: advance diet as tolerated esophagram Focal mucosal irregularity along the anterior surface of the upper cervical esophagus without evidence of extra esophageal leakage. This may represent the site of the patient's subcutaneous emphysema however no leakage of contrast is demonstrated. Otherwise normal esophagram. Maru Cannon Jun 11, 2017 10:05
[2017-06-11] MEDS ORDERED: HYDR-3516 PO (12:42)
--- NOTE | 2017-06-11 12:43 | HHI.DCPOC ---
Discharge Care Plan Diagnosis: (1) Food impaction of esophagus Additional Problems DO NOT induce any vomiting. Goals to Promote Your Health * To prevent worsening of your condition and complications * To maintain your health at the optimal level Directions to Meet Your Goals Take your medications as prescribed Follow your dietary instruction Follow activity as directed Keep your appointments as scheduled Take your immunizations and boosters as scheduled If your symptoms worsen call your PCP, if no PCP go to Urgent Care Center or Emergency Room Smoking is Dangerous to Your Health. Avoid second hand smoke Call the 24-hour hour crisis hotline for domestic abuse at Davis Dumont MD Jun 11, 2017 12:43
--- NOTE | 2017-06-11 12:48 | HHI.PR ---
Subjective Remarks Nursing denies any deterioration since last night. Patient tolerating clear liquids well. Patient herself says the hydrocodone almost completely knocked out the pain. Pain much improved otherwise since admission. Objective Vital Signs Date Time Temp Pulse Resp B/P (MAP) Pulse Ox O2 Delivery O2 Flow Rate FiO2 06/11/17 11:30 98.5 78 18 121/74 (90) 98 06/11/17 10:01 72 06/11/17 09:00 86 06/11/17 08:45 97.7 78 18 143/71 (95) 100 06/11/17 08:00 56 06/11/17 07:01 58 06/11/17 05:44 58 06/11/17 04:32 98.2 59 18 118/64 (82) 99 06/11/17 04:00 58 06/11/17 03:00 56 06/11/17 02:00 62 06/11/17 01:00 56 06/11/17 00:00 98.2 66 18 108/72 (84) 100 06/10/17 23:00 62 06/10/17 20:00 98.6 63 18 117/65 (82) 99 06/10/17 19:00 63 06/10/17 18:00 78 06/10/17 15:01 98.8 80 18 127/69 (88) 99 06/10/17 15:00 74 I/O 06/10/17 06/10/17 06/10/17 06/11/17 06/11/17 06/11/17 07:00 15:00 23:00 07:00 15:00 23:00 Intake Total 193 ml 50 ml 972 ml 420 ml Output Total 200 ml Balance 193 ml 50 ml 772 ml 420 ml Intake Oral 0 ml 972 ml 420 ml IV Total 193 ml 50 ml Output Urine Total 200 ml # Voids 0 2 2 # Bowel Movements 0 Result Diagram: 06/11/17 0518 06/11/17 0515 Imaging Last Impressions Upper GI/Barium Swallow X-Ray 06/10/17 0000 Signed Impressions: Service Date/Time: May 13:40 - CONCLUSION: Focal mucosal irregularity along the anterior surface of the upper cervical esophagus without evidence of extra esophageal leakage. This may represent the site of the patient's subcutaneous emphysema however no leakage of contrast is demonstrated. Otherwise normal esophagram. Hector Dunn MD Soft Tissue Neck X-Ray 06/10/17 0000 Signed Impressions: Service Date/Time: May 01:29 - CONCLUSION: Dissecting gas in the prevertebral space from oropharynx all the way down to the superior mediastinum without evidence for foreign body. Daisy Santacruz MD Chest X-Ray 06/10/17 0000 Signed Impressions: Service Date/Time: May 01:29 - CONCLUSION: No acute cardiopulmonary disease. Daisy Santacruz MD Objective Remarks Abdomen is nondistended Oropharynx appears benign Head appears to be normocephalic, atraumatic A/P Assessment and Plan Discussed with cardiothoracic surgeryn and GI. Gastric suspects possible food impaction. Clinically improved and tolerating clear liquid with by mouth pain control. Stable for discharge from both specialties. We'll discharge the patient today; patient advised to stick to soft diet for the next few days and then advance as tolerated. Davis Dumont MD Jun 11, 2017 12:47
== END 2017-06-11 14:23 | disposition home or self-care (01) ==
LOC: PHED 23:31 → PHEDA 06-10 03:31 → INTOOBSV 06-10 03:31 → PH3B 06-10 04:29 → HCIS 06-10 11:10
PROVIDERS: ADMIT Hospitalist; ATTEND Hospitalist
DX: T18.128A Food in esophagus causing other injury, initial encounter (principal); K22.3 Perforation of esophagus; T79.7XXA Traumatic subcutaneous emphysema, initial encounter
CPT/HCPCS: 70360; 71010; 74220; 80048; 80053; 80076; 83735; 85025; 85610; 85730; 96365; 96366; 96375; 99285; G0378; J2270; J2543; J7030; Q9963; 99281